=== PATIENT | male | born 1945 | race Caucasian/White ===

== ENCOUNTER 2018-05-14 15:22 | Emergency (ER) | payer MEDICARE, BC, SELFPAY ==
[2018-05-14 15:24] VITALS: BP 164/63; PULSE 82; RESP 16; TEMP 36.1; BMI 26.2
--- NOTE | 2018-05-14 16:12 | ED.DCSUM_ITS ---
- ER Visit Summary Date of Service: 05/14/18 Chief Complaint: Left foot pain History of Present Illness: The patient is a 72 M with left foot pain after twisting it yesterday. He has minimal pain at rest but worse with walking. No ankle pain no knee pain no other injury. Physical Examination: Otherwise unremarkable exam, patient has medial foot tenderness on the lateral side of his left foot, there is no edema. There is no significant bony tenderness. There is no ankle pain. Neurovascularly intact. Emergency Department Course and Treatment: X-ray of the foot is unremarkable. Patient is reassured. He will be discharged. He has no pain at rest. Disposition: [Discharge stable condition] Impression: [Foot strain] This note was generated with [employer] dictation software. It may contain incorrect words, spelling, and punctuation that were not noted in review of the chart prior to signing ED Disposition - Plan for ED Patient: Disposition: Home or Assisted Living Chief Complaint: Lower Extremity Injury Instructions: ED Sprain Foot Referrals: [facility],[place] [Primary Care Provider] - 3-5 Days
[2018-05-14 16:56] VITALS: BP 139/92; PULSE 65; RESP 18; O2SAT 97
== END 2018-05-14 16:56 | disposition home or self-care (01) ==
PROVIDERS: Emergency Provider Emergency Medicine
DX: S96.912A Strain of unspecified muscle and tendon at ankle and foot level, left foot, initial encounter (principal); X50.1XXA Overexertion from prolonged static or awkward postures, initial encounter; Y93.9 Activity, unspecified; Y92.9 Unspecified place or not applicable; I10 Essential (primary) hypertension; F43.10 Post-traumatic stress disorder, unspecified; Z79.899 Other long term (current) drug therapy
CPT/HCPCS: 73630; 99282

== ENCOUNTER 2022-06-20 06:38 | Emergency (ER) | payer OTHER, SELFPAY ==
[2022-06-20 06:38] VITALS: BP 150/86; PULSE 74; RESP 16; TEMP 36.8; O2SAT 96; BMI 24.7
--- NOTE | 2022-06-20 07:11 | CT_ITS ---
HISTORY: Lower abdominal pain started yesterday, history of bladder cancer, diverticulitis. TECHNIQUE: Helically acquired images were obtained of the abdomen and pelvis after the intravenous administration of 100mL Isovue-300. A radiation dose optimization technique was used for this scan. 396 images. COMPARISON: None. FINDINGS: LOWER CHEST: Minimal dependent atelectasis. BOWEL: Bowel including appendix nondilated. Colonic diverticulosis with mild proximal sigmoid wall thickening and perisigmoid stranding. PERITONEUM: No free air, pericolonic fluid collection, or significant ascites. LIVER: Fatty infiltration. GALLBLADDER/BILIARY TREE: Gallbladder present. SPLEEN/PANCREAS: Homogeneous and nonenlarged. KIDNEYS: Small cortical and renal sinus cysts. No hydronephrosis. ADRENAL GLANDS: No nodules. VESSELS: No abdominal aortic aneurysm. Atherosclerosis present. PELVIC ORGANS: Unremarkable. BONES: Mild degenerative change. CT/Abdomen/Pelvis W IV Cont ONLY IMPRESSION: Mild acute sigmoid diverticulitis without perforation or abscess. Electronically Signed: Petra Ramires MD at 8:14 EDT ,
[2022-06-20 07:19] LABS: Absolute Neutrophil Count 7.8 X10^3/uL (2.0-7.7); Basophil# 0.09 X10^3/uL; Basophil% 0.8 % (0-1); Eosinophil# 0.17 X10^3/uL; Eosinophils% 1.6 % (0-5); Hematocrit 46.3 % (40-54); Hemoglobin 15.3 g/dL (13.0-16.5); Lymphocyte % 16.7 % (19-41); Mean Corpuscular Hgb 29.9 pg (27.0-32.0); Mean Corpuscular Volume 90.4 fL (80-94); Monocyte# 0.92 X10^3/uL; Monocyte% 8.5 % (0-10); NRBC Flagged by Analyzer 0 % (0-5); Neutrophil # 7.79 X10^3/uL (2.7-7.7); Neutrophil % 72.2 % (47-70); Platelet Count 253 K/mm3 (150-450); RBC Distribution Width CV 12.9 % (11.6-14.6); RBC Distribution Width SD 42.9 fl (35.1-43.9); Red Blood Count 5.12 M/mm3 (4.6-6.2); White Blood Count 10.8 K/mm3 (4.4-11.0)
[2022-06-20] MEDS: Morphine 4 MG/ML Syringe IV (07:19)
[2022-06-20] MEDS: Ondansetron 4 MG/2 ML Vial IV (07:19)
--- NOTE | 2022-06-20 07:27 | ED.VIS.GI ---
HPI HPI - GI History of Present Illness Chief Complaint: Abd Pain Informant: patient Narrative Narrative: Patient presents with pain in the left lower quadrant. He stated it started about 12 hours ago maybe 13 hours ago. It is slow onset but is slowly worsening. When I asked the patient, he denies any nausea vomiting or change in bowel habits. No urinary symptoms. No fevers or chills. No back pain or flank pain. It is worse if he is up moving and bending and is worse if he presses on the area. Rest makes it a little better. He has no prior abdominal surgery. He has never had this before. He has no history of diverticulitis. He has not had blood or black stools. [facility] Medical History Bladder cancer PTSD (post-traumatic stress disorder) Home Medications amlodipine 5 mg-valsartan 160 mg tablet 1 ea PO DAILY 10/09/16 [History Last Taken Unknown] fluoxetine 20 mg capsule 20 mg PO DAILY 10/09/16 [History Last Taken Unknown] rosuvastatin 20 mg tablet 20 mg PO DAILY 10/09/16 [History Last Taken Unknown] vitamins A,C,A-mfty-picufj 14,320 unit-226 mg-200 unit capsule (PreserVision AREDS) 1 ea PO DAILY 10/09/16 [History Last Taken Unknown] amoxicillin 875 mg-potassium clavulanate 125 mg tablet 1 tab PO BID #20 tabs 06/20/22 [Rx Last Taken Unknown] hydrocodone-acetaminophen 5-325mg 5mg-325mg 1 tab PO Q6H PRN pain 3 days #10 tabs 06/20/22 [Rx Last Taken Unknown] ondansetron 4 mg disintegrating tablet 4 mg PO Q8H PRN nausea and vomiting #10 tabs 06/20/22 [Rx Last Taken Unknown] Allergy/AdvReac Type Severity Reaction Status Date / Time Sulfa (Sulfonamide AdvReac Vomiting Verified 06/20/22 06:42 Antibiotics) Social History Smoking Status: Former smoker ROS ROS ED Constitutional Constitutional ED: Denies chills or fever(s) Cardiovascular Cardiovascular: Denies chest pain Respiratory/Chest Respiratory/Chest: Denies cough or dyspnea Gastrointestinal Gastrointestinal: Reports abdominal pain; Denies constipation, diarrhea, melena, nausea or vomiting Genitourinary Genitourinary ED: Denies dysuria or hematuria Musculoskeletal Musculoskeletal: Denies back pain Integumentary Denies rash Neurologic Neurologic: Denies paresthesias Endocrine Endocrinology: Denies polydipsia or polyuria Hematologic/Lymphatic Hematologic/Lymphatic: Denies easy bleeding or easy bruising Allergic/Immunologic Allergic/Immunologic ED: Denies urticaria EXAM Physical Exam Const Vital Signs: 06/20/22 06:38 Temperature 98.2 F Temperature Source Oral Pulse Rate 74 Respiratory Rate 16 Blood Pressure 150/86 H Blood Pressure Mean 107 Pulse Ox 96 Positive well nourished and well developed General Appearance ED: well developed and NAD HEENT Reports moist mucous membranes Eyes General Eye ED: Negative for scleral icterus Resp normal respiratory effort and clear to auscultation bilaterally Cardio regular rate and regular rhythm GI GI Narrative: Abdomen is soft and nondistended. Bowel sounds are normal. Patient does have some mild left lower quadrant tenderness. No rebound guarding. I do not feel a mass. I feel no hernia. All this tenderness is above inguinal ligament. No bruising or skin changes or vesicles. Palpation: soft Back/Spine no CVA tenderness Extremity full ROM Neuro Sensorium / Orientation: alert Skin no wounds General Skin Exam: Negative for jaundice Lesions: no lesions Rashes: no rashes MDM MDM MDM Narrative Medical decision making narrative: CBC is overall normal. Electrolytes show mild increase of creatinine. He was given IV fluids. Glucose is a nonspecific mild elevation. CT is consistent with diverticulitis. I talked the patient about antibiotic use but we also talked about the significant importance of diet, clear liquids initially with slowly advancing to bland diet with increased fiber. We discussed reasons to return. Lab Data Attestation: I reviewed the patient's lab results. Labs: Laboratory Results - last 24 hr 06/20/22 06/20/22 06:47 06:47 WBC 10.8 RBC 5.12 Hgb 15.3 Hct 46.3 MCV 90.4 MCH 29.9 MCHC 33.0 RDW Std Deviation 42.9 RDW Coeff of Scott 12.9 Plt Count 253 MPV 12.0 Immature Gran % (Auto) 0.200 Neut % (Auto) 72.2 H Lymph % (Auto) 16.7 L [place] % (Auto) 8.5 Eos % (Auto) 1.6 Baso % (Auto) 0.8 Absolute Neuts (auto) 7.8 H Absolute Lymphs (auto) 1.80 Nucleated RBC % 0 Sodium 139 Potassium 4.5 Chloride 108 H Carbon Dioxide 28.0 Anion Gap 3 L BUN 16 Creatinine 1.44 H Estim Creat Clear Calc 41.44 Est GFR (MDRD) Af Amer 61 Est GFR (MDRD) Non-Af 51 L BUN/Creatinine Ratio 11.1 Glucose 114 H Calcium 9.1 Radiography Diagnostic Testing: Clinical Impression(s) from Imaging Studies Abdomen/Pelvis CT 06/20/22 07:11 IMPRESSION: Mild acute sigmoid diverticulitis without perforation or abscess. Electronically Signed: Petra Ramires MD at 8:14 EDT , CT scan looked at by me and read by radiology is consistent with mild diverticulitis without perforation or abscess. Discharge Plan Triage Chief Complaint: Abd Pain ED Provider: Arnie Blackwell Dx/Rx/DC Orders Clinical Impression: Acute diverticulitis Instructions: ED Diverticulitis Prescriptions: New hydrocodone-acetaminophen 5-325 mg tablet 1 tab PO Q6H PRN (Reason: pain) 3 Days Qty: 10 0RF ondansetron 4 mg tablet,disintegrating 4 mg PO Q8H PRN (Reason: nausea and vomiting) Qty: 10 0RF amoxicillin-pot clavulanate 875-125 mg tablet 1 tab PO BID Qty: 20 0RF No Action fluoxetine 20 MG capsule 20 mg PO DAILY rosuvastatin 20 MG tablet 20 mg PO DAILY PreserVision AREDS 1 EACH capsule 1 ea PO DAILY amlodipine-valsartan 1 EACH tablet 1 ea PO DAILY [facility]] - 3-5 Days if not improving Disposition Disposition: Home, Self Care
[2022-06-20 07:31] LABS: Anion Gap 3 (5-15); BUN 16 mg/dL (7-18); BUN/Creat Ratio 11.1 RATIO (10-20); Calcium,Total 9.1 mg/dL (8.5-10.1); Chloride 108 mmol/L (98-107); Creatinine, Serum 1.44 mg/dL (0.70-1.30); EST Glomerular Filtration Rate 51 mL/min (>60); Est Glom Filt Rate - Afr Amer 61 mL/min (>60); Estimated Creatinine Clearance 41.44 ml/min; Glucose 114 mg/dL (74-106); Potassium 4.5 mmol/L (3.5-5.1); Sodium Level 139 mmol/L (136-145)
[2022-06-20 08:19] LABS: Bacteria 0 SEEN /hpf (None Seen); Mucous, Urine 0 SEEN /hpf (<or=2+); Red Blood Cells-Urine 0 SEEN /hpf (0-5); Squamous Epithelial Cells - UA 0 SEEN /hpf (0-5); White Blood Cells 0 SEEN /hpf (0-5)
[2022-06-20 08:21] LABS: Color, Urine Yellow (Yellow); Glucose, Dipstick Normal (Normal); Ketone-Dipstick Negative (Negative); Leukocyte Esterase-Dipstick Negative /ul (Negative); Nitrite-Dipstick Negative (Negative); Occult Blood-Urine Negative /ul (Negative); Protein-Dipstick Negative (Negative); Urine Bilirubin Dipstick Negative (Negative); Urine Clarity Clear (Clear); Urine Urobilinogen Normal (Normal); Urine pH 6.5 (5.0 - 8.0)
[2022-06-20 08:40] VITALS: BP 137/79; PULSE 56; RESP 16; O2SAT 97
== END 2022-06-20 08:48 | disposition home or self-care (01) ==
PROVIDERS: Emergency Provider Emergency Medicine; Visit Provider Emergency Medicine
DX: K57.32 Diverticulitis of large intestine without perforation or abscess without bleeding (principal); R10.32 Left lower quadrant pain; Z87.891 Personal history of nicotine dependence
CPT/HCPCS: 74177; 80048; 81001; 85025; 96361; 96374; 96375; 99282; J7030; Q9967; A4216; J2405

== ENCOUNTER 2022-07-17 12:10 | Observation (INO) | payer OTHER, SELFPAY ==
[2022-07-17 12:12] VITALS: BP 134/111; PULSE 61; RESP 16; TEMP 36.6; O2SAT 100; BMI 24.3
--- NOTE | 2022-07-17 13:09 | EDS_ITS ---
HPI History of Present Illness Chief Complaint: Complaint Informant: patient Onset/Context/Timing Onset: Weeks (1) Context: Gradual Onset Timing: Continuous Quality: Dull Location: Periumbilical Worsened by: Nothing Relieved by: Nothing Narrative Narrative: Patient presents with abdominal pain for the past week. Patient states that it is over the periumbilical and lower abdomen. Patient states it occasionally goes into the right upper abdomen. Patient states that he has had some dark urine recently. Patient also states that his stools have been white in color. Patient states nothing makes his symptoms worse and nothing makes them better. Patient admits to decreased appetite. Patient also admits to some increasing fatigue. Patient denies any fevers or chills. Patient denies any nausea or vomiting. PFSH PFS Medical History Bladder cancer PTSD (post-traumatic stress disorder) Home Medications amlodipine 5 mg-valsartan 160 mg tablet 1 ea PO DAILY 10/09/16 [History Last Taken Unknown] fluoxetine 20 mg capsule 20 mg PO DAILY 10/09/16 [History Last Taken Unknown] rosuvastatin 20 mg tablet 20 mg PO DAILY 10/09/16 [History Last Taken Unknown] vitamins A,C,O-lnvc-ekbguq 14,320 unit-226 mg-200 unit capsule (PreserVision AREDS) 1 ea PO DAILY 10/09/16 [History Last Taken Unknown] amoxicillin 875 mg-potassium clavulanate 125 mg tablet 1 tab PO BID #20 tabs 06/20/22 [Rx Last Taken Unknown] hydrocodone-acetaminophen 5-325mg 5mg-325mg 1 tab PO Q6H PRN pain 3 days #10 tabs 06/20/22 [Rx Last Taken Unknown] ondansetron 4 mg disintegrating tablet 4 mg PO Q8H PRN nausea and vomiting #10 tabs 06/20/22 [Rx Last Taken Unknown] Allergy/AdvReac Type Severity Reaction Status Date / Time Sulfa (Sulfonamide AdvReac Vomiting Verified 07/17/22 12:14 Antibiotics) Social History Smoking Status: Former smoker ROS ROS ED Constitutional Constitutional ED: Denies chills or fever(s) Eyes Eyes: Denies blurry vision or change in vision ENT ENT ED: Denies rhinorrhea or sore throat Cardiovascular Cardiovascular: Denies chest pain or palpitations Respiratory/Chest Respiratory/Chest: Denies cough or dyspnea Gastrointestinal Gastrointestinal: Reports abdominal pain; Denies nausea or vomiting Genitourinary Genitourinary ED: Denies dysuria or hematuria Musculoskeletal Musculoskeletal: Reports neck pain; Denies back pain Integumentary Denies abscess or rash Neurologic Neurologic: Denies headache(s) or weakness Allergic/Immunologic Allergic/Immunologic ED: Denies mouth swelling or urticaria EXAM Physical Exam Const Vital Signs: 07/17/22 12:12 07/17/22 16:05 Temperature 97.8 F Temperature Source Temporal Pulse Rate 61 57 L Respiratory Rate 16 16 Blood Pressure 134/111 H 188/74 H Blood Pressure Mean 118 112 Pulse Ox 100 98 Oxygen Delivery Method Room Air Room Air Positive well nourished and well developed General Appearance ED: well developed and NAD HEENT Reports moist mucous membranes Eyes PERRL and EOMs intact bilaterally General Eye ED: Yes scleral icterus Neck supple and no JVD Resp normal respiratory effort and clear to auscultation bilaterally Cardio regular rate, regular rhythm and no murmurs GI normal to inspection, nondistended, normoactive bowel sounds Palpation: soft and tender periumbilical (Mild); Negative for splenomegaly or rebound tenderness present Extremity normal to inspection General Extremety ED: Negative for edema or tenderness General Extremity: Negative for edema Neuro oriented x3, CN's II-XII intact bilaterally and no sensory deficits noted Sensorium / Orientation: alert Motor Exam: strength 5/5 throughout Psych mental status grossly normal Skin no rashes or lesions noted MDM MDM MDM Narrative Medical decision making narrative: Patient was given IV fluids. CBC was within normal limits. PT was INR and PTT were within normal limits. Comprehensive metabolic profile shows an elevated bilirubin of 9.3. AST is 207. ALT is 430. Alkaline phosphatase is 365. Lipase was normal. Ammonia level was 34. Urinalysis does not show any evidence of urinary tract infection or hematuria. Urobilinogen was 4. Urine bilirubin was 3. CT scan of the abdomen pelvis was obtained with oral and IV contrast. There are no calcified gallstones. There is no gallbladder distention or wall edema. There is no intra or extrahepatic biliary ductal dilatation. There is diverticulosis but no evidence of diverticulitis. This was interpreted by the radiologist and reviewed by myself. Case was discussed with Dr. Pickard. He reviewed the CT images. He felt there was some ductal dilatation. He recommended obtaining an MRCP. This was ordered. Patient was advised of all of his findings. Patient is willing to wait for the MRCP tonight. Care of the patient was turned over to the oncoming physician. Lab Data Attestation: I reviewed the patient's lab results. Labs: Laboratory Results - last 24 hr 07/17/22 07/17/22 07/17/22 13:20 13:20 13:20 WBC 4.9 RBC 4.80 Hgb 13.9 Hct 43.1 MCV 89.8 MCH 29.0 MCHC 32.3 RDW Std Deviation 48.1 H RDW Coeff of Scott 14.5 Plt Count 255 MPV 12.0 Immature Gran % (Auto) 0.200 Neut % (Auto) 56.1 Lymph % (Auto) 25.4 [place] % (Auto) 11.2 H Eos % (Auto) 4.7 Baso % (Auto) 2.4 H Absolute Neuts (auto) 2.8 Absolute Lymphs (auto) 1.25 Nucleated RBC % 0 PT 12.3 INR 0.9 APTT 27.5 Sodium 140 Potassium 4.2 Chloride 109 H Carbon Dioxide 24.0 Anion Gap 7 BUN 19 H Creatinine 1.30 Estim Creat Clear Calc 45.90 Est GFR (MDRD) Af Amer 69 Est GFR (MDRD) Non-Af 57 L BUN/Creatinine Ratio 14.6 Glucose 109 H Calcium 8.8 Total Bilirubin 9.30 H AST 207 H ALT 430 H Alkaline Phosphatase 365 H Ammonia Total Protein 7.0 Albumin 3.1 L Globulin 3.9 Albumin/Globulin Ratio 0.8 L Lipase 310 Urine Color Urine Clarity Urine pH Ur Specific [place] Urine Protein Urine Glucose (UA) Urine Ketones Urine Occult Blood Urine Nitrite Urine Bilirubin Urine Urobilinogen Ur Leukocyte Esterase Urine RBC Urine WBC Ur Squamous Epith Cells Urine Bacteria Urine Mucus 07/17/22 07/17/22 13:20 14:50 WBC RBC Hgb Hct MCV MCH MCHC RDW Std Deviation RDW Coeff of Scott Plt Count MPV Immature Gran % (Auto) Neut % (Auto) Lymph % (Auto) [place] % (Auto) Eos % (Auto) Baso % (Auto) Absolute Neuts (auto) Absolute Lymphs (auto) Nucleated RBC % PT INR APTT Sodium Potassium Chloride Carbon Dioxide Anion Gap BUN Creatinine Estim Creat Clear Calc Est GFR (MDRD) Af Amer Est GFR (MDRD) Non-Af BUN/Creatinine Ratio Glucose Calcium Total Bilirubin AST ALT Alkaline Phosphatase Ammonia 34.0 H Total Protein Albumin Globulin Albumin/Globulin Ratio Lipase Urine Color Yellow Urine Clarity Clear Urine pH 6.0 Ur Specific [place] 1.015 Urine Protein 15 H Urine Glucose (UA) Normal Urine Ketones Negative Urine Occult Blood Negative Urine Nitrite Negative Urine Bilirubin 3 H Urine Urobilinogen 4 H Ur Leukocyte Esterase 25 H Urine RBC 0 SEEN Urine WBC 0 SEEN Ur Squamous Epith Cells 0 SEEN Urine Bacteria 0 SEEN Urine Mucus 0 SEEN Radiography Diagnostic Testing: Clinical Impression(s) from Imaging Studies Abdomen/Pelvis CT 07/17/22 13:14 IMPRESSION: No acute findings in the abdomen or pelvis. There is sigmoid diverticulosis with no evidence of diverticulitis. Electronically Signed: Nader Rodríguez MD at 16:21 EST , Discharge Plan Triage Chief Complaint: Complaint ED Provider: Zev Hernandez Dx/Rx/DC Orders Clinical Impression: Abdominal pain, Hyperbilirubinemia, Transaminitis Prescriptions: No Action fluoxetine 20 MG capsule 20 mg PO DAILY rosuvastatin 20 MG tablet 20 mg PO DAILY PreserVision AREDS 1 EACH capsule 1 ea PO DAILY amlodipine-valsartan 1 EACH tablet 1 ea PO DAILY hydrocodone-acetaminophen 5-325 mg tablet 1 tab PO Q6H PRN (Reason: pain) 3 Days Qty: 10 0RF ondansetron 4 mg tablet,disintegrating 4 mg PO Q8H PRN (Reason: nausea and vomiting) Qty: 10 0RF amoxicillin-pot clavulanate 875-125 mg tablet 1 tab PO BID Qty: 20 0RF [facility] [facility] [facility] [Primary Care Provider] -
--- NOTE | 2022-07-17 13:14 | CT_ITS ---
EXAM: CT ABDOMEN AND PELVIS WITH INTRAVENOUS CONTRAST CLINICAL INDICATION: Abdominal pain -- IV PO Contrast TECHNIQUE: Helically acquired images were obtained of the abdomen and pelvis with intravenous contrast. This CT exam was performed using one or more of the following dose reduction techniques: automated exposure control, adjustment of the mA and/or kV according to patient size, and/or use of iterative reconstruction technique. This report was created using [employer] report generation technology. CONTRAST: Oral and IV Gastrografin and 100mL Isovue-300 COMPARISON: 06/20/2022 FINDINGS: LOWER THORAX: Unremarkable. Lung bases are clear. No cardiomegaly. No significant pericardial effusion. ABDOMEN: LIVER: Unremarkable. Homogeneous. No focal mass. GALLBLADDER AND BILE DUCTS: Unremarkable. No calcified gallstones. No gallbladder distention or wall edema. No intra- or extrahepatic biliary ductal dilation. PANCREAS: Unremarkable. No focal cystic or solid mass. SPLEEN: Unremarkable. Normal size without focal cystic or solid mass. ADRENALS: Unremarkable. No nodules. KIDNEYS AND URETERS: Unremarkable. Normal renal size and position. No hydronephrosis. STOMACH AND BOWEL: There is sigmoid diverticulosis with no evidence of diverticulitis. No stomach or bowel distention. PELVIS: APPENDIX: No evidence of acute appendicitis. BLADDER: Unremarkable. REPRODUCTIVE: Unremarkable as visualized. No mass. ABDOMEN and PELVIS: INTRAPERITONEAL SPACE: Unremarkable. No ascites or other fluid collection. No free air. BONES/JOINTS: Unremarkable. No suspicious lytic or blastic abnormality. SOFT TISSUES: Unremarkable. No discrete abdominal or pelvic wall hernia. VASCULATURE: Unremarkable. Abdominal aorta is non-dilated. LYMPH NODES: Unremarkable. No enlarged lymph nodes. CT/Abdomen/Pelvis WITH Contrast IMPRESSION: No acute findings in the abdomen or pelvis. There is sigmoid diverticulosis with no evidence of diverticulitis. Electronically Signed: Nader Rodríguez MD at 16:21 EST ,
[2022-07-17] MEDS: 0.9% Normal Saline 1,000 ML 1000 ML IV (13:23)
[2022-07-17 13:33] LABS: Absolute Lymphocyte Count 1.25 X10^3/uL (0.83-4.51); Absolute Neutrophil Count 2.8 X10^3/uL (2.0-7.7); Basophil# 0.12 X10^3/uL; Basophil% 2.4 % (0-1); Eosinophil# 0.23 X10^3/uL; Eosinophils% 4.7 % (0-5); Hematocrit 43.1 % (40-54); Hemoglobin 13.9 g/dL (13.0-16.5); Lymphocyte # 1.25 X10^3/ul (0.83-4.51); Lymphocyte % 25.4 % (19-41); Mean Corp Hgb Conc 32.3 g/dL (32-36); Mean Corpuscular Volume 89.8 fL (80-94); Monocyte# 0.55 X10^3/uL; Monocyte% 11.2 % (0-10); NRBC Flagged by Analyzer 0 % (0-5); Neutrophil # 2.77 X10^3/uL (2.7-7.7); Neutrophil % 56.1 % (47-70); Platelet Count 255 K/mm3 (150-450); RBC Distribution Width CV 14.5 % (11.6-14.6); RBC Distribution Width SD 48.1 fl (35.1-43.9); White Blood Count 4.9 K/mm3 (4.4-11.0)
[2022-07-17 13:45] LABS: Partial Thromboplast Time 27.5 Seconds (24.1-36.2)
[2022-07-17 13:46] LABS: International Normalized Ratio 0.9; Prothrombin Time (Protime)PT. 12.3 SECONDS (11.7-14.9)
[2022-07-17 13:48] LABS: ALB/GLOB Ratio 0.8 RATIO (0.9-2.4); AST(SGOT) 207 U/L (15-37); Alanine Aminotransfer ALT/SGPT 430 U/L (16-61); Albumin, Serum 3.1 g/dL (3.2-5.0); Alkaline Phosphatase 365 U/L (45-117); Anion Gap 7 (5-15); BUN 19 mg/dL (7-18); BUN/Creat Ratio 14.6 RATIO (10-20); Calcium,Total 8.8 mg/dL (8.5-10.1); Chloride 109 mmol/L (98-107); EST Glomerular Filtration Rate 57 mL/min (>60); Est Glom Filt Rate - Afr Amer 69 mL/min (>60); Globulin 3.9 g/dL (2.2-4.2); Glucose 109 mg/dL (74-106); Lipase 310 U/L (73-393); Potassium 4.2 mmol/L (3.5-5.1); Sodium Level 140 mmol/L (136-145)
[2022-07-17 14:56] LABS: Bacteria 0 SEEN /hpf (None Seen); Mucous, Urine 0 SEEN /hpf (<or=2+); Red Blood Cells-Urine 0 SEEN /hpf (0-5); Squamous Epithelial Cells - UA 0 SEEN /hpf (0-5); White Blood Cells 0 SEEN /hpf (0-5)
[2022-07-17 15:12] LABS: Color, Urine Yellow (Yellow); Glucose, Dipstick Normal (Normal); Ketone-Dipstick Negative (Negative); Leukocyte Esterase-Dipstick 25 /ul (Negative); Nitrite-Dipstick Negative (Negative); Occult Blood-Urine Negative /ul (Negative); Protein-Dipstick 15 mg/dl (Negative); Specific Gravity, Urine 1.015 (1.002-1.030); Urine Clarity Clear (Clear); Urine Urobilinogen 4 mg/dl (Normal)
[2022-07-17 15:14] LABS: Urine Bilirubin Dipstick 3 mg/dL (Negative)
[2022-07-17 16:05] VITALS: BP 188/74; PULSE 57; RESP 16; O2SAT 98
--- NOTE | 2022-07-17 16:54 | MRI_ITS ---
STUDY: MR MRCP WITHOUT CONTRAST REASON FOR EXAM: Male, 76 years old. Hyperbilirubinemia TECHNIQUE: Standard MRCP technique was utilized. 3-D reconstructions were performed. COMPARISON: CT earlier today FINDINGS: Gall Bladder: Normal with no distention or demonstrated fixed intraluminal filling defect. Cystic duct: Normal with no demonstrated fixed filling defect. Intrahepatic ducts: Normal visualized intrahepatic ducts with no demonstrated fixed filling defect, dilation or stricture. Common hepatic duct: Normal with no demonstrated fixed filling defect, dilation or stricture. Common bile duct: Normal with no demonstrated fixed filling defect, dilation or stricture. Pancreatic duct: Normal with no demonstrated fixed filling defect, dilation or stricture. MRI/MRCP Abdomen without Contrast IMPRESSION: Normal MR Cholangiopancreatography (MRCP). Electronically Signed: John Jean MD at 18:32 EST ,
--- NOTE | 2022-07-17 17:20 | PCM.CONS.GEN ---
Assessment & Plan Assessment/Plan (1) Cholestatic hepatitis: PLAN: The differential diagnosis for cholestatic hepatitis in this gentleman would be drug-induced hepatitis, less likely primary sclerosing cholangitis or primary biliary cirrhosis, obstructive physiology. I would recommend an MRCP and repeat LFTs. If his MRCP does not show any signs of obstructive physiology and then he should have close follow-up as an outpatient as he has not shown any signs of encephalopathy, abdominal pain, no signs and symptoms of COVID, RSV or adenovirus to make me think he has a non hepatitis virus related cholestatic hepatitis and has no pre-existing history of liver disease. I will check acute hepatitis profile, EBV and CMV ESR, CRP, LDH, copper, ceruloplasmin hemolysis panel including ferritin for secondary hemochromatosis, protein electrophoresis for amyloidosis, NELSON level for sarcoidosis and alpha-1 antitrypsin enzyme. HPI Consult Data Date of Consult: 07/17/22 HPI Narrative Reason for Consultation: Jaundice HPI Narrative: MARIAN SEVILLA, is a 76 M who presents with abdominal pain for the past week. He has a past medical history of mild hypertension, hyperlipidemia and a recent history of acute diverticulitis. He was diagnosed with acute diverticulitis back on 06/20/2022 and treated with 5 days of Augmentin. Patient states that it is over the periumbilical and lower abdomen.? Patient states it occasionally goes into the right upper abdomen.? Patient states that he has had some dark urine recently. He initially noticed that he had darkened urine back approximately about a week ago which is 2 weeks after being treated for acute diverticulitis with Augmentin. Patient also states that his stools have been white in color.? Patient states nothing makes his symptoms worse and nothing makes them better.? Patient admits to decreased appetite.? Patient also admits to some increasing fatigue.? Patient denies any fevers or chills.? Patient denies any nausea or vomiting. His biochemical analysis in the ED had showed Significant hyperbilirubinemia with a bilirubin of 9.3. Also noted was elevated liver enzymes with an AST of 255 ALT of 355 and alkaline phosphatase of 240. He had a CT scan abdomen pelvis did not show any signs of cholelithiasis or choledocholithiasis. Also do CT scan abdomen pelvis did not show any signs of pancreatic head mass or ampullary lesion. He does not drink any alcohol on a daily basis. He does take a statin but that is not a new medicine for him. [facility] Medical History Bladder cancer PTSD (post-traumatic stress disorder) Home Medications amlodipine 5 mg-valsartan 160 mg tablet 1 ea PO DAILY 10/09/16 [History Last Taken Unknown] fluoxetine 20 mg capsule 20 mg PO DAILY 10/09/16 [History Last Taken Unknown] rosuvastatin 20 mg tablet 20 mg PO DAILY 10/09/16 [History Last Taken Unknown] vitamins A,C,L-diih-lnokik 14,320 unit-226 mg-200 unit capsule (PreserVision AREDS) 1 ea PO DAILY 10/09/16 [History Last Taken Unknown] amoxicillin 875 mg-potassium clavulanate 125 mg tablet 1 tab PO BID #20 tabs 06/20/22 [Rx Last Taken Unknown] hydrocodone-acetaminophen 5-325mg 5mg-325mg 1 tab PO Q6H PRN pain 3 days #10 tabs 06/20/22 [Rx Last Taken Unknown] ondansetron 4 mg disintegrating tablet 4 mg PO Q8H PRN nausea and vomiting #10 tabs 06/20/22 [Rx Last Taken Unknown] Allergy/AdvReac Type Severity Reaction Status Date / Time Sulfa (Sulfonamide AdvReac Vomiting Verified 07/17/22 12:14 Antibiotics) Social History Smoking Status: Former smoker ROS Review of Systems ROS Unobtainable: other Constitutional Constitutional: Denies fatigue, fever(s), poor appetite, weight gain or weight loss ENT HEENT: Denies mouth lesions Cardiovascular Cardiovascular: Denies abdominal bloating, abdominal edema or abdominal pain Respiratory/Chest Respiratory/Chest: Denies change in mental status, change in phlegm color, chest congestion or chest tightness Gastrointestinal Gastrointestinal: Denies belching, bloating, change in bowel habits, change in stool character, chewing difficulty, coffee ground emesis, constipation, cramping, diarrhea, dyspepsia, dysphagia, early satiety, excessive flatus, fecal incontinence, heartburn, hematemesis, hematochezia, hemorrhoids, loose stools, melena, nausea, odynophagia, rectal bleeding, tenesmus, vomiting or weight changes Genitourinary Genitourinary: Denies abdominal discomfort, burning urination or itching Musculoskeletal Musculoskeletal: Reports as per HPI; Denies muscle weakness or myalgias Integumentary Integumentary: Denies jaundice Neurologic Neurologic: Denies lack of coordination or weakness Psychiatric Psychiatric: Denies confusion, depression, memory loss, mood swings, paranoia or suicidal ideation Endocrine Endocrinology: Denies systems reviewed and no addt'l complaints, except as documented Hematologic/Lymphatic Hematologic/Lymphatic: Denies anemia, easy bleeding, easy bruising or lymphadenopathy Allergic/Immunologic Allergic/Immunologic: Denies systems reviewed and no addt'l complaints, except as documented Physical Exam Const alert General Appearance: cooperative Orientation / Consciousness: oriented to person HEENT hearing grossly normal bilaterally Head and Scalp: normal to inspection Face and Sinus: face symmetric Nose: external nose normal Mouth: oral and palatal mucosa normal Eyes conjunctivae normal General Eye: normal appearance of both eyes Neck full ROM General: normal visual inspection Lymph Lymphatic: no lymphadenopathy noted Chest inspection of chest normal and palpation of chest normal Chest: symmetrical chest wall rise Resp normal respiratory effort Effort and Inspection: able to speak in complete sentences Cardio regular rate GI non-distended Percussion: normal to percussion Rectal Exam: deferred Neuro Speech: speech normal Gait (Neuro): normal gait Lab / Micro Data Result Diagrams: 07/17/22 13:20 07/17/22 13:20 Labs: Laboratory Results - last 24 hr 07/17/22 13:20: WBC 4.9, RBC 4.80, Hgb 13.9, Hct 43.1, MCV 89.8, MCH 29.0, MCHC 32.3, RDW Std Deviation 48.1 H, RDW Coeff of [place] 14.5, Plt Count 255, MPV 12.0, Immature Gran % (Auto) 0.200, Neut % (Auto) 56.1, Lymph % (Auto) 25.4, [place] % (Auto) 11.2 H, Eos % (Auto) 4.7, Baso % (Auto) 2.4 H, Absolute Neuts (auto) 2.8, Absolute Lymphs (auto) 1.25, Nucleated RBC % 0 07/17/22 13:20: PT 12.3, INR 0.9, APTT 27.5 07/17/22 13:20: Sodium 140, Potassium 4.2, Chloride 109 H, Carbon Dioxide 24.0, Anion Gap 7, BUN 19 H, Creatinine 1.30, Estim Creat Clear Calc 45.90, Est GFR (MDRD) Af Amer 69, Est GFR (MDRD) Non-Af 57 L, BUN/Creatinine Ratio 14.6, Glucose 109 H, Calcium 8.8, Total Bilirubin 9.30 H, AST 207 H, ALT 430 H, Alkaline Phosphatase 365 H, Total Protein 7.0, Albumin 3.1 L, Globulin 3.9, Albumin/Globulin Ratio 0.8 L, Lipase 310 07/17/22 13:20: Ammonia 34.0 H 07/17/22 14:50: Urine Color Yellow, Urine Clarity Clear, Urine pH 6.0, Ur Specific [place] 1.015, Urine Protein 15 H, Urine Glucose (UA) Normal, Urine Ketones Negative, Urine Occult Blood Negative, Urine Nitrite Negative, Urine Bilirubin 3 H, Urine Urobilinogen 4 H, Ur Leukocyte Esterase 25 H, Urine RBC 0 SEEN, Urine WBC 0 SEEN, Ur Squamous Epith Cells 0 SEEN, Urine Bacteria 0 SEEN, Urine Mucus 0 SEEN Radiology Impression Abdomen/Pelvis CT 07/17/22 13:14 IMPRESSION: No acute findings in the abdomen or pelvis. There is sigmoid diverticulosis with no evidence of diverticulitis. Electronically Signed: Nader Rodríguez MD at 16:21 EST , Charges/Coding Visit Charges Inpatient E&M: 14887 Init Hosp L3
[2022-07-17 18:01] LABS: Erythrocyte Sedimentation Rate 25 mm/hr (0-20)
[2022-07-17 18:17] VITALS: BP 205/81; PULSE 57; RESP 16; O2SAT 98
[2022-07-17 18:35] LABS: CRP 8.28 mg/L (0.0-3.0); Ferritin 632 ng/mL (26-388); Iron 96 ug/dL (65-175); LDH 231 U/L (87-241)
[2022-07-17 19:19] LABS: Lactic Acid 0.7 mmol/L (0.4-1.9)
--- NOTE | 2022-07-17 19:40 | PCM.HP.STD ---
HPI - General General Date of Admission: 07/17/22 Date of Service: 07/17/22 Chief Complaint: Abdominal pain, pale stools, fatigue HPI Narrative The patient is a 76 y/o M w/ PMHx: Anxiety and Depression/PTSD, Bladder CA status postresection in remission, HTN, HLD who presents to the [facility] ED on 07/17/22 with history of onset abdominal discomfort over the last week noted to be periumbilical and dull aching as well as in the lower abdomen with occasional discomfort going into the right upper abdomen with increasingly dark urine recently as well as pale stools occasionally appearing white in color with nothing improving or worsening his symptoms but he does report a decreased appetite and increased fatigue above his baseline with no recent fevers or chills, nausea or emesis however not improving prompting ED evaluation. Work-up in the ED included T97.8, heart rate 61, BP 134/111 increasing up to a max of 205/81, respiratory rate 16, 100% on room air, CBC with WC 4.9, hemoglobin 13.9, platelet 255 without marked shift, ESR 25, CRP 8.28, CMP with chloride 109, BUN/creat 19/1.30, glucose 109, lactic acid pending, total bilirubin 9.30, AST/ALT 227/430, alk phos 365, ammonia 34, LDH 231, iron 96, lipase 310, urinalysis with no acute findings except noted 3 mg/dL urine bilirubin, 4 mg/dL urine urobilinogen as well as 25 leukocyte esterase, CT abdomen and pelvis with contrast with no acute findings with sigmoid diverticulosis with no evidence of diverticulitis, follow-up MRCP requested per gastroenterology noted to be normal. ED physician discussed case at length with gastroenterology who had requested as noted the MRCP with additional labs initiated per GI including AFP tumor marker, antimitochondrial AB, anti-smooth muscle AB, carbohydrate AG 19 9, ceruloplasmin, copper serum or plasma, EBV acute VCA IgM, haptoglobin, hepatitis panel, PHILLIP plus protein electrophoresis and all pending upon requested evaluation of patient. In the ED patient ministered normal saline 1 L bolus. [facility] Medical History (Updated 07/17/22 @ 19:[address] Aster Solorio MD) Anxiety and depression History of bladder cancer HLD (hyperlipidemia) HTN (hypertension) PTSD (post-traumatic stress disorder) Home Medications amlodipine 5 mg-valsartan 160 mg tablet 1 ea PO DAILY 10/09/16 [History Last Taken Unknown] fluoxetine 20 mg capsule 20 mg PO DAILY 10/09/16 [History Last Taken Unknown] rosuvastatin 20 mg tablet 20 mg PO DAILY 10/09/16 [History Last Taken Unknown] vitamins A,C,M-tshk-rdkubs 14,320 unit-226 mg-200 unit capsule (PreserVision AREDS) 1 ea PO DAILY 10/09/16 [History Last Taken Unknown] aspirin 325 mg tablet 650 mg PO DAILY PRN Pain 07/17/22 [History Last Taken Unknown] esomeprazole magnesium 40 mg capsule,delayed release 40 mg PO DAILY PRN Heartburn 07/17/22 [History Last Taken 1 Week Ago ~07/10/22] melatonin 1 mg tablet 1 mg PO QHS PRN Sleep 07/17/22 [History Last Taken 07/16/22] Allergy/AdvReac Type Severity Reaction Status Date / Time Sulfa (Sulfonamide AdvReac Vomiting Verified 07/17/22 12:14 Antibiotics) Family History (Updated 07/17/22 @ 20:[address] Aster Solorio MD) Mother Heart disease Myocardial infarction CAD (coronary artery disease) Bipolar disorder Father Heart disease Myocardial infarction CAD (coronary artery disease) Surgical History (Updated 07/17/22 @ 20:[address] Aster Solorio MD) History of bladder surgery Social History (Updated 07/17/22 @ 20:[address] Aster Solorio MD) household members: spouse Smoking Status: Former smoker how long ago did patient quit smoking: Quit 60 years ago, smoked pipe age [age]. alcohol intake: current alcohol intake frequency: 0-2 drinks per day details: Drinks one bourbon in the evening daily. substance use type: does not use ROS ROS Narrative Admission Review of Systems: CONSTITUTIONAL: No weight loss, fever, chills, + weakness or fatigue. HEENT: Eyes: No visual loss, blurred vision, double vision or yellow sclerae. Ears, Nose, Throat: No hearing loss, sneezing, congestion, runny nose or sore throat. SKIN: No rash or itching, lesions, wounds. CARDIOVASCULAR: No chest pain, chest pressure or chest discomfort, palpitations, edema, orthopnea, syncopal events. RESPIRATORY: No shortness of breath, cough or sputum, wheezing, hemoptysis. GASTROINTESTINAL: + anorexia, abdominal pain, no vomiting or diarrhea, melena, BRBPR. GENITOURINARY: No dysuria, frequency, urgency or retention. NEUROLOGICAL: No headache, dizziness, syncope, paralysis, ataxia, numbness or tingling in the extremities, focal weakness, change in bowel or bladder control, seizure. MUSCULOSKELETAL: + muscle, back pain, joint pain or stiffness. HEMATOLOGIC: No anemia, bleeding or bruising. LYMPHATICS: No enlarged nodes. No history of splenectomy. PSYCHIATRIC: + history of depression or anxiety/PTSD. ENDOCRINOLOGIC: No reports of sweating, cold or heat intolerance. No polyuria or polydipsia. ALLERGIES: No history of asthma, hives, eczema or rhinitis. Vital Signs Vital Signs Vital Signs: 07/17/22 12:12 07/17/22 16:05 07/17/22 18:17 Temperature 97.8 F Temperature Source Temporal Pulse Rate 61 57 L 57 L Respiratory Rate 16 16 16 Blood Pressure 134/111 H 188/74 H 205/81 H Blood Pressure Mean 118 112 122 Pulse Ox 100 98 98 Oxygen Delivery Method Room Air Room Air Room Air Weight Weight: 155 lb Body Mass Index (BMI) 24.3 Physical Exam Narrative Physical Examination: General: Awake, alert, oriented x 3 and cooperative, seated upright in the ED bed, fatigued but no acute distress. Skin: Normal color, normal turgor, no icterus, no cyanosis. HEENT: AT/NC, EOMI, PERRLA, mildly dry MM, no carotid bruits or JVD noted. Lungs: Mildly diminished, greater bases, poor effort, no rales, ronchi or wheezing. Heart: Regular rate and rhythm; no gallop, rub audible. Abdomen: Soft, no tenderness to palpation of the entire abdomen, no rebound or guarding, no obvious distention, hyperactive bowel sounds, no marked HSM palpated on evaluation. Extremities: No cyanosis, clubbing, or edema. Neurological: Patient awake, alert, oriented as noted, cognitive function intact; pupils equally reactive to light and accommodation, cranial nerves II-XII grossly normal, moving all 4 extremities, no focal deficits, strength mildly global decrease secondary to acute presentation. Psychiatric: Affect appears mildly fatigued otherwise normal, no acute evidence of depressive or anxiety feelings. Results Lab / Micro Data Result Diagrams: 07/17/22 13:20 07/17/22 13:20 Labs: Laboratory Results - last 24 hr 07/17/22 13:20: WBC 4.9, RBC 4.80, Hgb 13.9, Hct 43.1, MCV 89.8, MCH 29.0, MCHC 32.3, RDW Std Deviation 48.1 H, RDW Coeff of [place] 14.5, Plt Count 255, MPV 12.0, Immature Gran % (Auto) 0.200, Neut % (Auto) 56.1, Lymph % (Auto) 25.4, [place] % (Auto) 11.2 H, Eos % (Auto) 4.7, Baso % (Auto) 2.4 H, Absolute Neuts (auto) 2.8, Absolute Lymphs (auto) 1.25, Nucleated RBC % 0 07/17/22 13:20: PT 12.3, INR 0.9, APTT 27.5 07/17/22 13:20: Sodium 140, Potassium 4.2, Chloride 109 H, Carbon Dioxide 24.0, Anion Gap 7, BUN 19 H, Creatinine 1.30, Estim Creat Clear Calc 45.90, Est GFR (MDRD) Af Amer 69, Est GFR (MDRD) Non-Af 57 L, BUN/Creatinine Ratio 14.6, Glucose 109 H, Calcium 8.8, Total Bilirubin 9.30 H, AST 207 H, ALT 430 H, Alkaline Phosphatase 365 H, Total Protein 7.0, Albumin 3.1 L, Globulin 3.9, Albumin/Globulin Ratio 0.8 L, Lipase 310 07/17/22 13:20: Ammonia 34.0 H 07/17/22 13:20: ESR 25 H 07/17/22 13:20: Iron 96, Ferritin 632 H, Lactate Dehydrogenase 231, C-React Prot Ext Range 8.28 H 07/17/22 14:50: Urine Color Yellow, Urine Clarity Clear, Urine pH 6.0, Ur Specific [place] 1.015, Urine Protein 15 H, Urine Glucose (UA) Normal, Urine Ketones Negative, Urine Occult Blood Negative, Urine Nitrite Negative, Urine Bilirubin 3 H, Urine Urobilinogen 4 H, Ur Leukocyte Esterase 25 H, Urine RBC 0 SEEN, Urine WBC 0 SEEN, Ur Squamous Epith Cells 0 SEEN, Urine Bacteria 0 SEEN, Urine Mucus 0 SEEN 07/17/22 18:28: Lactic Acid 0.7 Radiology Impression Abdomen/Pelvis CT 07/17/22 13:14 IMPRESSION: No acute findings in the abdomen or pelvis. There is sigmoid diverticulosis with no evidence of diverticulitis. Electronically Signed: Nader Rodríguez MD at 16:21 EST , MRCP 07/17/22 16:54 IMPRESSION: Normal MR Cholangiopancreatography (MRCP). Electronically Signed: John Jean MD at 18:32 EST , Assessment & Plan Assessment/Plan (1) Cholestatic hepatitis: PLAN: Plan The patient is a 76 y/o M w/ PMHx: Anxiety and Depression/PTSD, Bladder CA status postresection in remission, HTN, HLD who presents to the [facility] ED on 07/17/22 with history of onset abdominal discomfort over the last week noted to be periumbilical and dull aching as well as in the lower abdomen with occasional discomfort going into the right upper abdomen with increasingly dark urine recently as well as pale stools occasionally appearing white in color with nothing improving or worsening his symptoms but he does report a decreased appetite and increased fatigue above his baseline with no recent fevers or chills, nausea or emesis however not improving prompting ED evaluation. #1. Abdominal pain with Acute Transaminitis/Hyperbilirubinemia/Hyperammonia with Cholestatic Hepatitis suspected secondary to Augmentin usage (06/20/22 Diverticulitis diagnosis with abx dispensed at that time): MRCP requested per gastroenterology noted to be normal, per GI pending AFP tumor marker, antimitochondrial AB, anti-smooth muscle AB, carbohydrate AG 19 9, ceruloplasmin, copper serum or plasma, EBV acute VCA IgM, haptoglobin, hepatitis panel, PHILLIP plus protein electrophoresis. Will admit to MS, will judiciously hydrate, will continue Solumedrol 125 mg IV q 6 hours, will allow diet given no obvious evidence of intra-abdominal findings at this time, continue GI consultation, plan repeat CMP in the AM. #2. Hypertension: BP initially elevated in the ED, improved without intervention, will continue home regimen including amlodipine-valsartan, PRN hydralazine. #3. Hyperlipidemia: We will hold statin therapy given significantly elevated bilirubin and LFTs, resume once appropriate. #4. Anxiety and depression/PTSD: We will continue patient home fluoxetine regimen. #5. History of bladder cancer: Diagnosed in 1989, status post resection of bladder tumors, noted to be in remission. #6. DVT prophylaxis: SCDs, hold on anticoagulation given #1 with planned repeat AM coags to be cautious. Charges/Coding Visit Charges OBSV E&M: 01049 Initial observation care L3
[2022-07-17 19:55] VITALS: BP 172/79
[2022-07-17 19:58] VITALS: BP 170/93; PULSE 55; RESP 16; TEMP 36.3; O2SAT 98
[2022-07-17] MEDS: MethylPREDNISolone 125 MG/2 ML Vial IV ×2 (20:07→23:12)
[2022-07-17 20:12] LABS: Magnesium 2.2 mg/dL (1.6-2.6); Phosphorus 2.9 mg/dL (2.5-4.9)
[2022-07-17 21:15] VITALS: BMI 23.6
[2022-07-17 21:40] VITALS: BP 132/60; PULSE 64; RESP 16; TEMP 36.6; O2SAT 95
[2022-07-17] MEDS: 0.9% Normal Saline 1,000 ML 100 ML IV (22:01)
[2022-07-17] MEDS: 0.9% Saline Lock 10 ML Syringe IV (22:01)
[2022-07-17] MEDS: MELATONIN 3 MG TABLET PO (23:12)
[2022-07-18 03:30] VITALS: BP 121/71; PULSE 64; RESP 16; TEMP 36.6; O2SAT 96
[2022-07-18] MEDS: MethylPREDNISolone 125 MG/2 ML Vial IV (05:28)
[2022-07-18 05:47] LABS: Absolute Lymphocyte Count 0.63 X10^3/uL (0.83-4.51); Absolute Neutrophil Count 3.4 X10^3/uL (2.0-7.7); Basophil# 0.02 X10^3/uL; Basophil% 0.5 % (0-1); Hematocrit 40.3 % (40-54); Hemoglobin 13.4 g/dL (13.0-16.5); Lymphocyte # 0.63 X10^3/ul (0.83-4.51); Lymphocyte % 15.5 % (19-41); Mean Corp Hgb Conc 33.3 g/dL (32-36); Mean Corpuscular Hgb 29.1 pg (27.0-32.0); Mean Corpuscular Volume 87.6 fL (80-94); Mean Platelet Vol. 11.9 fl (6.2-12.0); Monocyte# 0.02 X10^3/uL; Monocyte% 0.5 % (0-10); NRBC Flagged by Analyzer 0 % (0-5); Neutrophil # 3.38 X10^3/uL (2.7-7.7); Neutrophil % 83.3 % (47-70); Platelet Count 237 K/mm3 (150-450); RBC Distribution Width CV 14.3 % (11.6-14.6); RBC Distribution Width SD 46.1 fl (35.1-43.9); White Blood Count 4.1 K/mm3 (4.4-11.0)
[2022-07-18 05:56] LABS: Prothrombin Time (Protime)PT. 13.3 SECONDS (11.7-14.9)
[2022-07-18 05:57] LABS: Partial Thromboplast Time 29.1 Seconds (24.1-36.2)
[2022-07-18 07:04] LABS: AST(SGOT) 150 U/L (15-37); Alanine Aminotransfer ALT/SGPT 352 U/L (16-61); Albumin, Serum 2.8 g/dL (3.2-5.0); Alkaline Phosphatase 343 U/L (45-117); Anion Gap 6 (5-15); BUN 18 mg/dL (7-18); BUN/Creat Ratio 14.4 RATIO (10-20); Bilirubin, Direct 6.23 mg/dL (0.00-0.30); Calcium,Total 8.5 mg/dL (8.5-10.1); Chloride 110 mmol/L (98-107); Creatinine, Serum 1.25 mg/dL (0.70-1.30); EST Glomerular Filtration Rate 60 mL/min (>60); Est Glom Filt Rate - Afr Amer 72 mL/min (>60); Globulin 3.5 g/dL (2.2-4.2); Glucose 160 mg/dL (74-106); Potassium 4.4 mmol/L (3.5-5.1); Protein, Total 6.3 g/dL (6.4-8.2); Sodium Level 139 mmol/L (136-145)
[2022-07-18 07:05] LABS: Ammonia < 10.0 umol/L (11-32)
[2022-07-18 08:40] VITALS: BP 162/85; PULSE 71; RESP 18; TEMP 36.8; O2SAT 99
[2022-07-18] MEDS: FLU VACC QS2022-23(6MOS UP)/PF 60 MCG/0.5 ML SYRINGE IM (08:45)
[2022-07-18] MEDS: 0.9% Normal Saline 1,000 ML 100 ML IV (08:45)
[2022-07-18] MEDS: Losartan Potassium 50 MG Tablet PO (08:46)
[2022-07-18] MEDS: FLUoxetine 20 MG Capsule PO (08:46)
[2022-07-18] MEDS: amLODIPine 5 MG Tablet PO (08:46)
--- NOTE | 2022-07-18 11:37 | PCM.DC ---
Discharge Instructions Diet Discharge Diet: No restrictions Activity Discharge Activity: Return to Normal Activity Weight Bearing Status: Full weight bearing Follow Up Care Test Results: Test results from this visit will be discussed in further detail at your follow-up appointment, if applicable. Discharge Plan Admission Admit Date/Time: 07/17/22 19:43 Primary Reason for Your Visit: hepatitis Attending Provider: Giancarlo Solitario Primary Care Provider: [facility],[place] Consulting Providers: Aster Solorio Instructions Additional Instructions / Restrictions: Get liver profile done at hospital on 07/20/22 Discharge Orders/Prescriptions Prescriptions: New prednisone 20 mg tablet 60 mg PO DAILY Qty: 21 0RF Rx Instructions: start on 07/18/22 Continued fluoxetine 20 MG capsule 20 mg PO DAILY rosuvastatin 20 MG tablet 20 mg PO QPM PreserVision AREDS 1 EACH capsule 1 ea PO QPM amlodipine-valsartan 1 EACH tablet 1 ea PO DAILY aspirin 325 mg Tablet 650 mg PO DAILY PRN (Reason: Pain) esomeprazole magnesium 40 mg capsule,delayed release(DR/EC) 40 mg PO DAILY PRN (Reason: Heartburn) Label Comments: TAKE 1 CAPSULE BY MOUTH EVERY DAY melatonin 1 mg Tablet 1 mg PO QHS PRN (Reason: Sleep) Referrals / Follow Up: Friend,[facility] [Med Staff - Active Staff] - Within 1 Week (call to make appointment) [facility] - Disposition Disposition (needs filled in before D/C Order can be placed): Home, Self Care
--- NOTE | 2022-07-18 11:44 | PCM.DC.SUM ---
Providers Date of Admission: 07/17/22 Date of Discharge: 07/18/22 Primary Care Physician: [facility] Consultations 07/17/22 21:33 Consult: Gastroenterology Routine Consulting Provider: Zaira Gastroenterfranklin Reason for Consult: Cholestatic Hepatitis suspected secondary to Augmentin EMERGENT Consult: No MD Notified: Yes Date Notified: 07/17/22 Time Notified: 19:43 Method of Notification: ED Physician Initiated Reason For Visit: CHOLESTATIC HEPATITIS Diagnosis Discharge Diagnosis (1) Cholestatic hepatitis: Status: Acute Code(s): K75.89 - Other specified inflammatory liver diseases Plan Final diagnosis: #1 drug-induced hepatitis (Augmentin) #2 hyperlipidemia #3 essential hypertension #4 PTSD Medications at Discharge Home Medications amlodipine 5 mg-valsartan 160 mg tablet 1 ea PO DAILY blood pressure 10/09/16 fluoxetine 20 mg capsule 20 mg PO DAILY PTSD 10/09/16 rosuvastatin 20 mg tablet 20 mg PO QPM CHOLESTEROL 10/09/16 vitamins A,C,R-ymzi-scyvdo 14,320 unit-226 mg-200 unit capsule (PreserVision AREDS) 1 ea PO QPM EYE HEALTH 10/09/16 aspirin 325 mg tablet 650 mg PO DAILY PRN Pain 07/17/22 esomeprazole magnesium 40 mg capsule,delayed release 40 mg PO DAILY PRN Heartburn 07/17/22 melatonin 1 mg tablet 1 mg PO QHS PRN Sleep 07/17/22 prednisone 20 mg tablet 60 mg PO DAILY #21 tabs 07/18/22 Hospital Course Operations None Procedures None Summary of Care Provided Minutes Spent on Discharge: 31 Hospital Course: This 77-year-old white male was seen in the emergency room at [facility] with complaints of abdominal pain in the periumbilical region and lower abdomen x1 week, he states that occasionally he has right upper quadrant abdominal pain also. Work-up in the emergency room included labs which revealed a normal CBC, patient's blood chemistry showed a highly elevated bilirubin at 9.3, AST was 207, ALT was 430, alkaline phosphatase was 365. Lipase was 310. CT of the abdomen and pelvis was performed which showed no acute findings, gastroenterology was contacted and an MRCP was performed which was normal. Patient was given IV Solu-Medrol and placed into observation status on MedSurg 3. Gastroenterology felt that the patient had had a adverse reaction from Augmentin which she had been placed on in June. Patient continued IV Solu-Medrol while hospitalized. Patient's repeat liver enzymes the next day were improved somewhat. Patient was able to eat and drink without difficulty. On 07/18/2022, patient was seen and examined: On examination he appeared in good health and spirits. Vital signs as documented. Skin warm and dry and without overt rashes. Neck without JVD, neck was supple, trachea midline, thyroid was normal. Lungs clear bilaterally, normal air movement was noted. Heart exam notable for regular rhythm, normal sounds and absence of murmurs, rubs or gallops. Abdomen unremarkable and without evidence of organomegaly, masses, or abdominal aortic enlargement. Bowel sounds are present, abdomen is not distended. Extremities nonedematous, no cyanosis was noted, no clubbing was noted. Neuro: Cranial nerves II through XII are grossly intact, no focal motor deficits were noted, sensation to light touch and pinprick intact, motor exam 5/5 throughout. Psych: Patient is alert and oriented x3, he does not appear anxious or depressed, he does not appear agitated. Patient appears stable for discharge on 07/18/2022. Patient was cautioned against any alcohol intake. Patient was given a prescription for repeat liver enzymes and an INR to be done on 07/20/2022, he was to follow-up with gastroenterology in approximately a week in the office. Medical Records Data Medical Nutrition Assessment Dietitian: Malnutrition Criteria Met Start: 07/18/22 09:52 Freq: Status: Active Protocol: Document 07/18/22 09:52 (Rec: 07/18/22 09:52 AG [id number]) Nutrition Malnutrition Evidence of Malnutrition Exists Yes Malnutrition (moderate): Acute Illness/Injury Evidenced By Suboptimal Energy Intake ( Moderate),Weight Loss ( Moderate) Clinical Problem Acute Disease or Injury Related Malnutrition Etiology moderate acute malnutrition related to inadequate energy intake/GI dysfunction Signs/Symptoms as evidenced by unintentional wt loss of 2.4#/1.5% x 1 week; estimated PO intake meeting < 75% of estimated energy needs x 1 week Status Active Problem Recommendation Dietitian Recommendations/Changes cardiac diet as tolerated; will adjust ONS to ensure plus high protein 4x/day (in between meals) for additional calories/protein if consumed; will monitor PO intake and liberalize diet if improved PO intake does not continue at meals Weight / BMI Weight Weight: 69.2 kg Body Mass Index (BMI) 23.6 ABG / Lab / Microbiology Data Result Diagrams: 07/18/22 05:40 07/18/22 05:40 Laboratory: Laboratory Results - last 24 hr 07/17/22 13:20: WBC 4.9, RBC 4.80, Hgb 13.9, Hct 43.1, MCV 89.8, MCH 29.0, MCHC 32.3, RDW Std Deviation 48.1 H, RDW Coeff of Scott 14.5, Plt Count 255, MPV 12.0, Immature Gran % (Auto) 0.200, Neut % (Auto) 56.1, Lymph % (Auto) 25.4, [place] % (Auto) 11.2 H, Eos % (Auto) 4.7, Baso % (Auto) 2.4 H, Absolute Neuts (auto) 2.8, Absolute Lymphs (auto) 1.25, Nucleated RBC % 0 07/17/22 13:20: PT 12.3, INR 0.9, APTT 27.5 07/17/22 13:20: Sodium 140, Potassium 4.2, Chloride 109 H, Carbon Dioxide 24.0, Anion Gap 7, BUN 19 H, Creatinine 1.30, Estim Creat Clear Calc 45.90, Est GFR (MDRD) Af Amer 69, Est GFR (MDRD) Non-Af 57 L, BUN/Creatinine Ratio 14.6, Glucose 109 H, Calcium 8.8, Total Bilirubin 9.30 H, AST 207 H, ALT 430 H, Alkaline Phosphatase 365 H, Total Protein 7.0, Albumin 3.1 L, Globulin 3.9, Albumin/Globulin Ratio 0.8 L, Lipase 310 07/17/22 13:20: Ammonia 34.0 H 07/17/22 13:20: ESR 25 H 07/17/22 13:20: Iron 96, Ferritin 632 H, Lactate Dehydrogenase 231, C-React Prot Ext Range 8.28 H 07/17/22 13:20: Phosphorus 2.9, Magnesium 2.2 07/17/22 14:50: Urine Color Yellow, Urine Clarity Clear, Urine pH 6.0, Ur Specific [place] 1.015, Urine Protein 15 H, Urine Glucose (UA) Normal, Urine Ketones Negative, Urine Occult Blood Negative, Urine Nitrite Negative, Urine Bilirubin 3 H, Urine Urobilinogen 4 H, Ur Leukocyte Esterase 25 H, Urine RBC 0 SEEN, Urine WBC 0 SEEN, Ur Squamous Epith Cells 0 SEEN, Urine Bacteria 0 SEEN, Urine Mucus 0 SEEN 07/17/22 18:28: Lactic Acid 0.7 07/18/22 05:40: WBC 4.1 L, RBC 4.60, Hgb 13.4, Hct 40.3, MCV 87.6, MCH 29.1, MCHC 33.3, RDW Std Deviation 46.1 H, RDW Coeff of Scott 14.3, Plt Count 237, MPV 11.9, Immature Gran % (Auto) 0.200, Neut % (Auto) 83.3 H, Lymph % (Auto) 15.5 L, [place] % (Auto) 0.5, Eos % (Auto) 0.0, Baso % (Auto) 0.5, Absolute Neuts (auto) 3.4, Absolute Lymphs (auto) 0.63 L, Nucleated RBC % 0 07/18/22 05:40: PT 13.3, INR 1.0, APTT 29.1 07/18/22 05:40: Sodium 139, Potassium 4.4, Chloride 110 H, Carbon Dioxide 23.0, Anion Gap 6, BUN 18, Creatinine 1.25, Estim Creat Clear Calc 47.00, Est GFR (MDRD) Af Amer 72, Est GFR (MDRD) Non-Af 60, BUN/Creatinine Ratio 14.4, Glucose 160 H, Calcium 8.5, Total Bilirubin 8.00 H, Direct Bilirubin 6.23 H, AST 150 H, ALT 352 H, Alkaline Phosphatase 343 H, Total Protein 6.3 L, Albumin 2.8 L, Globulin 3.5 07/18/22 05:40: Ammonia < 10.0 L Radiography Diagnostic Testing: Radiology Impression Abdomen/Pelvis CT 07/17/22 13:14 IMPRESSION: No acute findings in the abdomen or pelvis. There is sigmoid diverticulosis with no evidence of diverticulitis. Electronically Signed: Nader Rodríguez MD at 16:21 EST , MRCP 07/17/22 16:54 IMPRESSION: Normal MR Cholangiopancreatography (MRCP). Electronically Signed: John Jean MD at 18:32 EST , D/C Instructions Discharge Diet: No restrictions Weight Bearing Status: Full weight bearing Meaningful Use Info Meaningful Use Diagnoses (Choose all that apply): None applicable Discharge Plan Admission Admit Date/Time: 07/17/22 19:43 Primary Reason for Your Visit: hepatitis Attending Provider: Giancarlo Solitario Primary Care Provider: [place] [place] Consulting Providers: Aster Solorio Instructions Additional Instructions / Restrictions: Get liver profile done at [facility] [address] on 07/20/22 Discharge Orders/Prescriptions Prescriptions: New prednisone 20 mg tablet 60 mg PO DAILY Qty: 21 0RF Rx Instructions: start on 07/18/22 Continued fluoxetine 20 MG capsule 20 mg PO DAILY rosuvastatin 20 MG tablet 20 mg PO QPM PreserVision AREDS 1 EACH capsule 1 ea PO QPM amlodipine-valsartan 1 EACH tablet 1 ea PO DAILY aspirin 325 mg Tablet 650 mg PO DAILY PRN (Reason: Pain) esomeprazole magnesium 40 mg capsule,delayed release(DR/EC) 40 mg PO DAILY PRN (Reason: Heartburn) Label Comments: TAKE 1 CAPSULE BY MOUTH EVERY DAY melatonin 1 mg Tablet 1 mg PO QHS PRN (Reason: Sleep) Referrals / Follow Up: Friend,DO Rob[facility] [Med Staff - Active Staff] - Within 1 Week (call to make appointment) [facility] [Primary Care Provider] - Disposition Disposition (needs filled in before D/C Order can be placed): Home, Self Care Charges/Coding Visit Charges OBSV E&M: 80528 Observation care discharge
[2022-07-18] MEDS: predniSONE 20 MG Tablet 40 MG PO (13:00)
[2022-07-18 13:55] VITALS: O2SAT 96
[2022-07-20 17:37] LABS: Anti-Mitochondrial AB <20.0 Units (0.0-20.0)
[2022-07-22 01:06] LABS: Alpha-1-Globulins 0.3 g/dL (0.0-0.4); Alpha-2-Globulins 0.8 g/dL (0.4-1.0); Ceruloplasmin 28.8 mg/dL (16.0-31.0); Gamma Globulin 0.5 g/dL (0.4-1.8); HEPATITIS B SURFACE AG Negative (Negative); Hep C Antibodies <0.1 s/co ratio (0.0-0.9); Hepatitis A IgM Antibody Negative (Negative); Hepatitis B Core AB IgM Negative (Negative); Immunoglobulin A 398 mg/dL (61-437); Immunoglobulin G 708 mg/dL (603-1613); Immunoglobulin M 47 mg/dL (15-143); PROEL- TOTAL PROTEIN 5.8 g/dL (6.0-8.5)
[2022-07-22 16:45] LABS: AFP, Tumor Marker 1.8 ng/mL (0.0-8.4); Anti-Smooth Muscle ABS 6 Units (0-19); Carbohydrate AG 19-9 177 U/mL (0-35); Copper, Serum or Plasma 132 ug/dL (69-132); EBV Acute VCA IgM < 36.0 U/mL (0.0-35.9); Haptoglobin 97 mg/dL (34-355)
== END 2022-07-18 14:11 | disposition home or self-care (01) ==
LOC: ED 18:00 → MS3 20:08
PROVIDERS: Emergency Medicine; Internal Medicine Gastroenterology; Admitting Provider Family Medicine; Emergency Provider Emergency Medicine; Visit Provider Internal Medicine
DX: K75.89 Other specified inflammatory liver diseases (principal); F43.10 Post-traumatic stress disorder, unspecified; E78.5 Hyperlipidemia, unspecified; I10 Essential (primary) hypertension; R53.83 Other fatigue; Z87.891 Personal history of nicotine dependence; K57.30 Diverticulosis of large intestine without perforation or abscess without bleeding; Z23 Encounter for immunization; Z79.899 Other long term (current) drug therapy
CPT/HCPCS: 36415; 74177; 74181; 80048; 80053; 80074; 80076; 81001; 82105; 82140; 82390; 82525; 82728; 82784; 83010; 83516; 83540; 83605; 83615; 83690; 83735; 84100; 84165; 85025; 85610; 85652; 85730; 86140; 86301; 86334; 86665; 96361; 96374; 96376; 97802; 99218; 99285; G0008; J7030; Q9967; 90686; A4216; G0378

== ENCOUNTER → 2022-07-20 | Outpatient (CLI) | payer MEDICARE, BC, SELFPAY ==
[2022-07-20 10:50] LABS: Prothrombin Time (Protime)PT. 12.9 SECONDS (11.7-14.9)
[2022-07-20 11:06] LABS: AST(SGOT) 185 U/L (15-37); Alanine Aminotransfer ALT/SGPT 426 U/L (16-61); Albumin, Serum 3.2 g/dL (3.2-5.0); Alkaline Phosphatase 297 U/L (45-117); Bilirubin, Direct 3.44 mg/dL (0.00-0.30); Globulin 3.5 g/dL (2.2-4.2); Protein, Total 6.7 g/dL (6.4-8.2)
== END | disposition home or self-care (01) ==
LOC: LAB 10:08
PROVIDERS: Referring Provider Internal Medicine; Visit Provider Internal Medicine
DX: K75.89 Other specified inflammatory liver diseases (principal); R74.01 Elevation of levels of liver transaminase levels
CPT/HCPCS: 36415; 80076; 85610

== ENCOUNTER → 2022-07-28 | Outpatient (CLI) | payer MEDICARE, BC, SELFPAY ==
[2022-07-28 10:36] LABS: AST(SGOT) 64 U/L (15-37); Alanine Aminotransfer ALT/SGPT 233 U/L (16-61); Albumin, Serum 3.3 g/dL (3.2-5.0); Alkaline Phosphatase 202 U/L (45-117); Bilirubin, Direct 1.27 mg/dL (0.00-0.30); Globulin 3.5 g/dL (2.2-4.2); Protein, Total 6.8 g/dL (6.4-8.2)
[2022-07-29 15:03] LABS: Carbohydrate Ag 19-9 2261 105 U/mL (0-35)
== END | disposition home or self-care (01) ==
LOC: LAB 09:33
PROVIDERS: Referring Provider Nurse Practitioner Adult Health; Visit Provider Nurse Practitioner Adult Health
DX: K75.89 Other specified inflammatory liver diseases (principal)
CPT/HCPCS: 36415; 80076; 86301

== ENCOUNTER → 2022-09-09 | Outpatient (CLI) | payer MEDICARE, BC, SELFPAY ==
--- NOTE | 2022-09-09 09:34 | US_ITS ---
STUDY: ABDOMINAL ULTRASOUND - ELASTOGRAPHY REASON FOR VISIT: Male, 77 years old. Hepatitis. TECHNIQUE: Liver stiffness measurements were obtained on a [employer] Vision RS 85 ultrasound machine using a CA 1-7 probe following the SRU guidelines. 3 measurements were obtained using a 2-D-SWE method. The IQR/M was 21 % suggesting a quality data set. TECHNICAL QUALITY: Adequate. COMPARISON: None. FINDINGS: Liver: There is no demonstrated mass lesion. Median liver stiffness measured 9.1 kPa. US/Elastography Parenchyma/Organ IMPRESSION: Liver stiffness measures 9.1 kPa compatible with F2-F3 (Mild to moderate liver fibrosis) Metavir score. Electronically Signed: Luis Almonte MD at 15:20 EST ,
--- NOTE | 2022-09-09 09:34 | US_ITS ---
STUDY: ABDOMINAL ULTRASOUND - RIGHT UPPER QUADRANT REASON FOR VISIT: Male, 77 years old cholestatic hepatitis -- elastography TECHNIQUE: Ultrasound evaluation of the right upper quadrant was performed with real-time and static soto-scale imaging. TECHNICAL QUALITY: Adequate. COMPARISON: Comparison is made with prior CT scan of the abdomen dated 07/17/2022. FINDINGS: Liver: The liver measures 14.6 cm. There is normal echogenicity of the liver. The bile ducts are within normal limits. There is hepatic color flow. The direction of portal flow is hepatopetal. There is no demonstrated mass lesion. Gallbladder: Normal distended gallbladder. The gallbladder wall measures 2.2 mm. There is a negative sonographic Delaney''s sign. There is no pericholecystic fluid. There are no gallstones. Common Bile Duct (C.B.D.): The common bile duct measures 4.4 mm. Pancreas: There is nonvisualization of the pancreas due to overlying bowel gas. Right Kidney: Normal size of the right kidney. The right kidney measures 10 cm x 4.7 cm x 5.1 cm. Normal renal cortex. The right cortex measures 1.6 cm. There is no demonstrated renal mass or cyst. There is no right hydronephrosis. US/Abdomen Limited IMPRESSION: Nonvisualization of pancreas due to overlying bowel gas. No acute abnormalities. Electronically Signed: Luis Almonte MD at 15:19 EST ,
== END | disposition home or self-care (01) ==
LOC: US 09:29
PROVIDERS: Referring Provider Nurse Practitioner Adult Health; Visit Provider Nurse Practitioner Adult Health
DX: K75.89 Other specified inflammatory liver diseases (principal); E80.6 Other disorders of bilirubin metabolism; R97.8 Other abnormal tumor markers; R74.01 Elevation of levels of liver transaminase levels
CPT/HCPCS: 76705; 76981

== ENCOUNTER → 2022-09-22 | Outpatient (CLI) | payer MEDICARE, BC, SELFPAY ==
[2022-09-22 13:05] LABS: AST(SGOT) 29 U/L (15-37); Alanine Aminotransfer ALT/SGPT 39 U/L (16-61); Albumin, Serum 3.7 g/dL (3.2-5.0); Alkaline Phosphatase 78 U/L (45-117); Globulin 3.3 g/dL (2.2-4.2)
[2022-09-23 09:40] LABS: Carbohydrate AG 19-9 14 U/mL (0-35)
== END | disposition home or self-care (01) ==
LOC: LAB 11:53
PROVIDERS: Referring Provider Nurse Practitioner Adult Health; Visit Provider Nurse Practitioner Adult Health
DX: R97.8 Other abnormal tumor markers (principal); K75.89 Other specified inflammatory liver diseases; R74.01 Elevation of levels of liver transaminase levels; E80.6 Other disorders of bilirubin metabolism
CPT/HCPCS: 36415; 80076; 86301

== ENCOUNTER 2024-04-03 08:20 | Emergency (ER) | payer MEDICARE, BC, SELFPAY ==
[2024-04-03 08:20] VITALS: BP 132/103; PULSE 87; RESP 16; TEMP 36.7; O2SAT 98; BMI 25.0
--- NOTE | 2024-04-03 08:43 | EX.ED.DYSGE1 ---
HPI History of Present Illness Chief Complaint: Lower Extremity Injury Informant: patient Onset/Context/Timing Onset: Month(s) Context: Gradual Onset Timing: Continuous Quality: Aching Location: Right hip Worsened by: At night Relieved by: Nothing Narrative Narrative: Patient presents with pain in his right hip that has been getting progressively worse over the past several months. Patient denies any trauma or injury. Patient describes the pain as aching. Patient states he has had pain in his right arm due to arthritis for years. Patient states the pain in his hip is similar to the pain in his arm. Patient states it is worse at night. Patient states he is unable to find a comfortable position at night. Patient states nothing seems to help the pain. [facility] Medical History History of bladder cancer HLD (hyperlipidemia) HTN (hypertension) Anxiety and depression Cholestatic hepatitis PTSD (post-traumatic stress disorder) Home Medications ?Medication ?Instructions ?Recorded ?Last Taken ?Type amlodipine 5 mg-valsartan 160 mg 1 ea PO DAILY blood pressure 10/09/16 07/17/22 History tablet fluoxetine 20 mg capsule 20 mg PO DAILY PTSD 10/09/16 07/17/22 History rosuvastatin 20 mg tablet 20 mg PO QPM CHOLESTEROL 10/09/16 07/16/22 History vitamins A,C,L-ectj-macugl 4,296 1 ea PO QPM EYE HEALTH 10/09/16 07/15/22 History mcg-226 mg-90 mg capsule (PreserVision AREDS) aspirin 325 mg tablet 650 mg PO DAILY PRN Pain 07/17/22 Unknown History esomeprazole magnesium 40 mg 40 mg PO DAILY PRN Heartburn 07/17/22 1 Week Ago History capsule,delayed release ~07/10/22 melatonin 1 mg tablet 1 mg PO QHS PRN Sleep 07/17/22 07/16/22 History meloxicam 15 mg tablet 15 mg PO DAILY PRN pain #10 tabs 04/03/24 Unknown Rx Allergy/AdvReac Type Severity Reaction Status Date / Time amoxicillin (From Augmentin) AdvReac HEPATITIS Verified 12/23/22 14:33 clavulanic acid (From AdvReac HEPATITIS Verified 12/23/22 14:33 Augmentin) Sulfa (Sulfonamide AdvReac Vomiting Verified 03/01/23 07:39 Antibiotics) Family History (Reviewed 11/04/22 @ 07:45 by Heather Castaneda CHILDREN'S BOOK AUTHOR, CHILDREN'S BOOK AUTHOR-C) Mother Heart disease Myocardial infarction CAD (coronary artery disease) Bipolar disorder Father Heart disease Myocardial infarction CAD (coronary artery disease) Surgical History History of bladder surgery Social History household members: spouse Smoking Status: Former smoker how long ago did patient quit smoking: Quit 60 years ago, smoked pipe age [age]. alcohol intake: current alcohol intake frequency: 0-2 drinks per day details: Drinks one bourbon in the evening daily. substance use type: does not use ROS ROS ED Constitutional Constitutional ED: Denies chills or fever(s) Eyes Eyes: Denies blurry vision or change in vision ENT ENT ED: Denies rhinorrhea or sore throat Cardiovascular Cardiovascular: Denies chest pain or palpitations Respiratory/Chest Respiratory/Chest: Denies cough or dyspnea Gastrointestinal Gastrointestinal: Denies nausea or vomiting Genitourinary Genitourinary ED: Denies dysuria or hematuria Musculoskeletal Musculoskeletal: Denies back pain or neck pain Integumentary Denies abscess or rash Neurologic Neurologic: Denies headache(s) or weakness Allergic/Immunologic Allergic/Immunologic ED: Denies mouth swelling or urticaria EXAM Physical Exam Const Vital Signs: 04/03/24 08:20 Temperature 98.1 F Temperature Source Oral Pulse Rate 87 Respiratory Rate 16 Blood Pressure 132/103 H Blood Pressure Mean 112 Pulse Ox 98 Oxygen Delivery Method Room Air Positive well nourished and well developed General Appearance ED: well developed and NAD HEENT Reports moist mucous membranes Neck supple and no JVD Extremity Extremity Narrative: There is tenderness over the anterior and lateral aspects of the right hip. There is no obvious deformity noted. Range of motion was slightly limited in all motions of the right hip secondary to pain. Strength is 5/5 bilaterally in the lower extremities. There are no sensory deficits noted. Pedal pulses are equal bilaterally. There is no calf tenderness noted. General Extremety ED: Negative for edema General Extremity: Negative for edema Neuro oriented x3, CN's II-XII intact bilaterally and no sensory deficits noted Sensorium / Orientation: alert Motor Exam: strength 5/5 throughout Psych mental status grossly normal MDM MDM MDM Narrative Medical decision making narrative: Differential diagnosis includes degenerative arthritis, muscle strain, and occult fracture. X-rays of the right hip will be obtained to assess for degenerative arthritis and occult fracture. Radiography Diagnostic Testing: Clinical Impression(s) from Imaging Studies Hip/Pelvis X-Ray 04/03/24 09:15 IMPRESSION: Questionable right femoral acetabular impingement. Electronically Signed: Luis Almonte MD at 9:48 EDT , X-rays of the right hip were obtained. There are 3 views. On my independent interpretation, there is no acute fracture. There are minimal degenerative changes noted. Radiologist also interpreted the x-ray and noted questionable impingement in the hip joint. Treatment and Re-Evaluation :: Patient was advised that his pain is mainly from a muscle strain or tendinitis. Patient was given a prescription for meloxicam. Patient was instructed use ice to the area. Patient was instructed to follow-up with his primary care physician in 5 to 7 days. Patient was instructed to return if worse in any way. Patient understood and was agreeable with the plan. All questions were answered. Discharge Plan Triage Chief Complaint: Lower Extremity Injury ED Provider: Zev Hernandez Dx/Rx/DC Orders Clinical Impression: Strain of right hip, NAFLD (nonalcoholic fatty liver disease) Instructions: ED Hip Strain Prescriptions: New meloxicam 15 mg tablet 15 mg PO DAILY PRN (Reason: pain) Qty: 10 0RF No Action fluoxetine 20 MG capsule 20 mg PO DAILY rosuvastatin 20 MG tablet 20 mg PO QPM PreserVision AREDS 1 EACH capsule 1 ea PO QPM amlodipine-valsartan 1 EACH tablet 1 ea PO DAILY aspirin 325 mg Tablet 650 mg PO DAILY PRN (Reason: Pain) esomeprazole magnesium 40 mg capsule,delayed release(DR/EC) 40 mg PO DAILY PRN (Reason: Heartburn) Patient Comments: TAKE 1 CAPSULE BY MOUTH EVERY DAY melatonin 1 mg Tablet 1 mg PO QHS PRN (Reason: Sleep) [facility] Ref[facility] [Primary Care Provider] - 5-7 Days Print Language: Setswana Disposition Disposition: Home, Self Care
--- NOTE | 2024-04-03 09:15 | RAD_ITS ---
STUDY: X-RAY - PELVIS AND RIGHT HIP REASON FOR EXAM: Male, 78 years old. Injury/Pain TECHNIQUE: 3 views of the pelvis and hip. COMPARISON: None. FINDINGS: There is a non-specific bowel gas pattern. Normal visualized soft tissue structures. Normal bilateral iliac wings, sacroiliac joints and visualized sacrum. Normal bilateral superior and inferior pubic rami. Normal pubic symphysis. Normal bilateral ischial tuberosities. Mild degree of widening of the right femoral neck. An element of femoral acetabular impingement should be ruled out. Normal acetabulum. Normal hip joint. RAD/HIP, UNI W/ Pelvis 2-3 Views IMPRESSION: Questionable right femoral acetabular impingement. Electronically Signed: Luis Almonte MD at 9:48 EDT ,
== END 2024-04-03 10:06 | disposition home or self-care (01) ==
PROVIDERS: Emergency Provider Emergency Medicine; Visit Provider Emergency Medicine
DX: S73.101A Unspecified sprain of right hip, initial encounter (principal); Z87.891 Personal history of nicotine dependence; I10 Essential (primary) hypertension; K76.0 Fatty (change of) liver, not elsewhere classified; E78.5 Hyperlipidemia, unspecified; Z85.51 Personal history of malignant neoplasm of bladder; F41.9 Anxiety disorder, unspecified; F32.A Depression, unspecified; X58.XXXA Exposure to other specified factors, initial encounter
CPT/HCPCS: 73502; 99282

== ENCOUNTER 2024-10-03 11:27 | Emergency (ER) | payer MEDICARE, BC, SELFPAY ==
[2024-10-03 11:28] VITALS: BP 134/83; PULSE 74; RESP 20; TEMP 35.8; O2SAT 97
[2024-10-03 11:30] VITALS: BMI 24.3
--- NOTE | 2024-10-03 12:19 | RAD_ITS ---
PROCEDURE: KNEE 4 OR MORE VIEWS REASON FOR EXAM: Left knee pain and swelling. TECHNIQUE: 2 view(s) of the left knee COMPARISON: None. RAD/Knee 4 or More Views IMPRESSION: No significant left knee joint effusion is seen. Overall mild left knee degenerative changes are noted, but with [id number] medial joint narrowing and at least mild patellofemoral joint narrowing noted No acute fracture or dislocation is seen. If clinical concern persists, short-term follow-up imaging may be obtained to r ule out a currently occult fracture. Reading Location: [id number]
--- NOTE | 2024-10-03 13:21 | EX.ED.DYSGE1 ---
HPI History of Present Illness Chief Complaint: Lower Extremity Injury Narrative Narrative: Patient is a 79-year-old male with a past medical hypertension, hyperlipidemia, anxiety, depression who presented to the emerged part with a chief complaint of left knee pain. Patient states that his left knee pain has been going on for months and he states that was not getting better therefore he came here today to see on exactly what was going on. He states that he been taking Advil once a day for the pain. Patient denies any other new trauma or injuries to the knee. Otherwise he states that has been feeling well. [facility] Medical History Arthritis History of bladder cancer HLD (hyperlipidemia) HTN (hypertension) Anxiety and depression Cholestatic hepatitis PTSD (post-traumatic stress disorder) Home Medications ?Medication ?Instructions ?Recorded ?Last Taken ?Type amlodipine 5 mg-valsartan 160 mg 1 ea PO DAILY blood pressure 10/09/16 07/17/22 History tablet fluoxetine 20 mg capsule 20 mg PO DAILY PTSD 10/09/16 07/17/22 History rosuvastatin 20 mg tablet 20 mg PO QPM CHOLESTEROL 10/09/16 07/16/22 History vitamins A,C,M-cvdh-frkerg 4,296 1 ea PO QPM EYE HEALTH 10/09/16 07/15/22 History mcg-226 mg-90 mg capsule (PreserVision AREDS) aspirin 325 mg tablet 650 mg PO DAILY PRN Pain 07/17/22 Unknown History esomeprazole magnesium 40 mg 40 mg PO DAILY PRN Heartburn 07/17/22 1 Week Ago History capsule,delayed release ~07/10/22 melatonin 1 mg tablet 1 mg PO QHS PRN Sleep 07/17/22 07/16/22 History meloxicam 15 mg tablet 15 mg PO DAILY PRN pain #10 tabs 04/03/24 Unknown Rx diclofenac sodium 1 % topical gel 2 g topical Q6H PRN pain #100 grams 10/03/24 Unknown Rx Allergy/AdvReac Type Severity Reaction Status Date / Time amoxicillin (From Augmentin) AdvReac HEPATITIS Verified 10/03/24 11:30 clavulanic acid (From AdvReac HEPATITIS Verified 10/03/24 11:30 Augmentin) Sulfa (Sulfonamide AdvReac Vomiting Verified 10/03/24 11:30 Antibiotics) Family History Mother Heart disease Myocardial infarction CAD (coronary artery disease) Bipolar disorder Father Heart disease Myocardial infarction CAD (coronary artery disease) Surgical History History of bladder surgery Social History household members: spouse Smoking Status: Former smoker how long ago did patient quit smoking: Quit 60 years ago, smoked pipe age [age]. alcohol intake: current alcohol intake frequency: 0-2 drinks per day details: Drinks one bourbon in the evening daily. substance use type: does not use ROS ROS ED ROS Narrative Constitutional: Denies fevers, chills, headaches Neurological: Denies any numbness, tingling, weakness Musculoskeletal: Complains of left knee pain as noted above Skin: Denies any rashes or lesions EXAM Physical Exam Narrative Exam Narrative: General: Patient lying in bed resting comfortably did not appear to be in acute distress Head: Atraumatic, normocephalic Eyes: PERRL bilaterally, EOMI bilateral, no conjunctival injection noted Neck: Soft, supple, trachea midline Cardiovascular: Regular rate and rhythm no murmurs gallops rubs noted Respiratory: Clear to auscultation bilaterally no rales rhonchi or wheezes noted Abdomen: Soft, nondistended, no tenderness palpation, bowel sounds present x 4 Musculoskeletal: Patient has full range of motion of his right knee without any pain during range of motion Extremities: DP pulses +2/4 in the bilateral lower extremities, no pedal edema on exam, +5/5 strength noted in the bilateral upper and lower extremities Neurological: Patient following commands knew that he was at [facility] year is 2024. Sensation grossly intact Skin: Warm, dry, intact no rashes or lesions noted Const Vital Signs: 10/03/24 11:28 10/03/24 13:27 10/03/24 13:27 Temperature 96.4 F L 96.4 F L Temperature Source Temporal Pulse Rate 74 80 80 Respiratory Rate 20 H 16 16 Blood Pressure 134/83 H 134/83 H Blood Pressure Mean 100 100 Pulse Ox 97 95 95 Oxygen Delivery Method Room Air Room Air MDM MDM MDM Narrative Medical decision making narrative: Patient is a 71-year-old male who presented to the emerged part with chief complaint of left knee pain. On the differential diagnose includes but not limited to distal femur fracture, tibial plateau fracture, musculoskeletal strain, osteoarthritis. Once workup is obtained reviewed he will be reevaluated. Patient's x-ray of his knee reviewed by myself and by radiology showed no acute fracture dislocations. Patient does have mild left knee degenerative changes with mild to moderate medial joint narrowing and at least mild patellofemoral joint narrowing noted. New Did discuss results with the patient he was advised to follow-up the primary care physician which she was referred to as well as the orthopedic physician which she was referred to. He will be given prescription for Voltaren gel and was advised to rotate Tylenol and ibuprofen [id number]. He is agreeable this plan he would like to go home and this point time all question concerns answered he is discharged home in stable condition. Radiography Diagnostic Testing: Clinical Impression(s) from Imaging Studies Knee X-Ray 10/03/24 12:19 IMPRESSION: No significant left knee joint effusion is seen. Overall mild left knee degenerative changes are noted, but with [id number] medial joint narrowing and at least mild patellofemoral joint narrowing noted No acute fracture or dislocation is seen. If clinical concern persists, short-term follow-up imaging may be obtained to rule out a currently occult fracture. Reading Location: [address] Discharge Plan Triage Chief Complaint: Lower Extremity Injury ED Provider: Dewayne Celaya Dx/Rx/DC Orders Clinical Impression: Osteoarthritis of left knee, Knee pain, left Prescriptions: New diclofenac sodium 1 % gel 2 g topical Q6H PRN (Reason: pain) Qty: 100 0RF No Action fluoxetine 20 MG capsule 20 mg PO DAILY rosuvastatin 20 MG tablet 20 mg PO QPM PreserVision AREDS 1 EACH capsule 1 ea PO QPM amlodipine-valsartan 1 EACH tablet 1 ea PO DAILY aspirin 325 mg Tablet 650 mg PO DAILY PRN (Reason: Pain) esomeprazole magnesium 40 mg capsule,delayed release(DR/EC) 40 mg PO DAILY PRN (Reason: Heartburn) Patient Comments: TAKE 1 CAPSULE BY MOUTH EVERY DAY melatonin 1 mg Tablet 1 mg PO QHS PRN (Reason: Sleep) meloxicam 15 mg tablet 15 mg PO DAILY PRN (Reason: pain) Qty: 10 0RF Primary Care Provider: [facility] Referrals: [facility] [Primary Care Provider] - Natacha Campos MD [Med Staff - Mechanical Ordnance Assembler] - Florencio Calixto DO [Med Staff - Active Staff] - Activity Restrictions/Additional Instructions: Use the gel as prescribed for your knee pain. Follow-up with the orthopedics team in the outpatient setting they referred to as well as a primary care physician. Rotate Tylenol and ibuprofen [id number] therefore you can take something every 3 hours when you are rotating the 2. Return with worsening symptoms and concerns. Your x-rays did not show anything acute. Print Language: Amharic Disposition Disposition: Home, Self Care
[2024-10-03 13:27] VITALS: BP 134/83; PULSE 80; RESP 16; TEMP 35.8; O2SAT 95
== END 2024-10-03 14:00 | disposition home or self-care (01) ==
PROVIDERS: Emergency Provider Emergency Medicine; Visit Provider Emergency Medicine
DX: M17.12 Unilateral primary osteoarthritis, left knee (principal); E78.5 Hyperlipidemia, unspecified; I10 Essential (primary) hypertension; Z87.891 Personal history of nicotine dependence; F41.9 Anxiety disorder, unspecified; Z85.51 Personal history of malignant neoplasm of bladder; Z79.82 Long term (current) use of aspirin
CPT/HCPCS: 73564; 99282